=== PATIENT | female | born 1955 | race Caucasian/White ===

== ENCOUNTER → 2021-01-09 | Outpatient (CLI) | payer MEDICARE ==
--- NOTE | 2021-01-09 15:59 | RAD ---
PQRS Compliance Statement: One or more of the following individualized dose reduction techniques were utilized for this examinat ion: 1. Automated exposure control 2. Adjustment of the mA and/or kV according to patient size 3. Use of iterative reconstruction technique CT THORAX WO 01/09/2021 11:27 AM Indication: Elevated tumor markers. History of double lung transplant for emphysema. COMPARISON: None available. TECHNIQUE: Multiple axial CT images of the chest were obtained without intravenous contrast. Coronal and sagittal reformats are provided. FINDINGS: 2 mm solid noncalcified pulmonary nodule identified in the right upper lobe (series 5, image 91). The re is minimal left apical pleural-parenchymal scarring. Is subsegmental atelectasis at the medial lef t lung base. Scarring the inferior lingula. There is scarring in the medial right middle lobe and med ial right lower lobe. No pleural effusions, pulmonary vascular congestion or pneumothorax. Central ai rways are clear. Surgical clips identified in the mediastinum. Heart size within normal limits. Thora cic aorta is normal in course and caliber with mild calcified plaque. IVC filter is present. Otherwis e, visualized portions of the upper abdomen appear normal. Simple cyst identified in the right hepati c lobe measuring 8 mm. No suspicious osseous abnormality is identified. S-shaped scoliosis of the tho racolumbar spine. IMPRESSION: 2 mm solid noncalcified pulmonary nodule in the right upper lobe. Fleischner guidelines for incidenta lly detected pulmonary nodules suggests no routine follow-up for low risk patients and optional CT at 12 months for high risk patients with solid noncalcified pulmonary nodules less than 6 mm in size. Electronically signed by: Jennifer Sarabia MD (01/09/2021 3:57 PM) [id number]
== END ==
LOC: CT 11:22
PROVIDERS: ATTEND Family Medicine
DX: R91.8 Other nonspecific abnormal finding of lung field (principal); R97.8 Other abnormal tumor markers
CPT/HCPCS: 71250